=== PATIENT | male | born 2000 | race Two or more races ===

== ENCOUNTER 2023-01-18 17:00 | Emergency (ER) | payer OTHER ==
[~2023-01-18] VITALS: Ht 182.9 cm; Wt 54.5 kg
[2023-01-18] MEDS ORDERED: HYDROmorphone HCL 2 MG/ML VL/or syr IM ONE ×2 (17:15→21:00)
[2023-01-18] MEDS ORDERED: ONDANSETRON HCL 4 MG/2 ML VIAL IM ONE ×2 (17:15→21:00)
[2023-01-18] MEDS ORDERED: AMOXICILLIN/CLAVUL 875 MG TAB PO ONE (19:00)
[2023-01-18] MEDS ORDERED: TETANUS-DIPTH-ACEL PERTUSSIS 0.5ML SYR Tdap IM ONE (19:00)
[2023-01-18] MEDS ORDERED: ACET-1304 PO (19:02)
[2023-01-18] MEDS ORDERED: AUG875T PO (19:02)
[2023-01-18] MEDS ORDERED: IBU600T PO (19:02)
[2023-01-18 19:43] VITALS: PULSE 72; RESP 18; O2SAT 99
[2023-01-18 21:24] VITALS: TEMP 97.9; O2SAT 100
[2023-01-18 21:26] VITALS: BP 125/69; PULSE 80; RESP 18
== END 2023-01-18 22:15 | disposition home or self-care (01) ==
LOC: ER 17:00
DX: S51.832A Puncture wound without foreign body of left forearm, initial encounter (principal); R55 Syncope and collapse; R42 Dizziness and giddiness; Z79.1 Long term (current) use of non-steroidal anti-inflammatories (NSAID); Z79.899 Other long term (current) drug therapy; W54.0XXA Bitten by dog, initial encounter; Y93.89 Activity, other specified; Y92.89 Other specified places as the place of occurrence of the external cause; Y99.8 Other external cause status
CPT/HCPCS: 73090; 90471; 90715; 96372; 99284; J1170; J2405